=== PATIENT | male | born 1955 | race Caucasian/White ===

== ENCOUNTER 2021-11-11 18:19 | Observation (INO) ==
[2021-11-11] MEDS ORDERED: Naloxone 0.4 MG/ML INJ IVP PRN (22:58)
[2021-11-11] MEDS ORDERED: Melatonin 3 MG TABLET PO PRN (22:58)
[2021-11-11] MEDS ORDERED: Ondansetron ODT 4 MG TAB.RAPDIS SL PRN (22:58)
[2021-11-12] MEDS ORDERED: Ringers Solution, Lactated 1,000 ML IVC SCH (00:15)
[2021-11-12] MEDS ORDERED: *HR* Dextrose 50 % in Water (Syg) 50 ML SYRINGE IVP PRN (00:18)
[2021-11-12] MEDS ORDERED: D5% in Water 1,000 ML IVC PRN (00:18)
[2021-11-12] MEDS ORDERED: Dextrose Gel 15 GM/37.5 ML TUBE PO PRN ×2 (00:18)
[2021-11-12 00:46] LABS: Basophils # 0.1 K/mcL (0.0-0.2); Basophils % 0.8 %; Eosinophils # 0.4 K/mcL (0.0-0.6); Eosinophils % 3.9 %; Hematocrit 21.2 % (37.5-50.1); Hemoglobin 7.7 g/dL (12.9-16.9); Immature Granulocytes % 0.9 % (0-4); Lymphocytes # 1.6 K/mcL (0.6-4.6); Lymphocytes % 15.4 %; Mean Corpuscular HGB Conc 36.3 g/dL (31.6-35.5); Mean Corpuscular Hemoglobin 32.8 pg (28.0-33.3); Mean Corpuscular Volume 90.2 fL (83.0-100.0); Mean Platelet Volume 9.9 fL (9.4-12.4); Monocytes # 1.1 K/mcL (0.0-1.3); Monocytes % 10.2 %; Neutrophils # 7.3 K/mcL (1.6-8.9); Platelet Count 191 K/mcL (140-400); Red Blood Count 2.35 M/mcL (4.19-5.50); Red Cell Distribution Width 13.7 % (11.5-14.5); Segmented Neutrophils % 68.8 %; White Blood Count 10.6 K/mcL (4.3-11.1)
[2021-11-12 00:58] LABS: Prothrombin Time 11.3 Seconds (9.4-12.1)
[2021-11-12 01:09] LABS: Alanine Aminotransferase 23 Units/L (7-52); Albumin 2.5 g/dL (3.5-5.7); Albumin/Globulin Ratio 1.6 (1.1-2.2); Alkaline Phosphatase 43 Units/L (34-104); Aspartate Amino Transferase 36 Units/L (13-39); BUN/Creatinine Ratio 10 (6-26); Bilirubin,Total 0.5 mg/dL (0.3-1.0); Blood Urea Nitrogen 7 mg/dL (8-23); Calcium 7.6 mg/dL (8.6-10.3); Carbon Dioxide 24 mEq/L (23-29); Chloride 98 mEq/L (98-107); Globulin 1.6 g/dL (2.4-3.5); Glucose 138 mg/dL (70-105); Magnesium 1.9 mg/dL (1.6-2.6); Osmolality,Calculated 266 (280-300); Phosphorous 2.6 mg/dL (2.7-4.5); Potassium 3.7 mEq/L (3.5-5.1); Sodium 128 mEq/L (136-145); Total Protein 4.1 g/dL (6.4-8.9); eGFR For African Americans > 60 (> 60); eGFR For Non-African Americans > 60 (> 60)
[2021-11-12] MEDS: Insulin LISPRO 300 UNITS/3 ML VIAL SUBQ SCH ×3 (05:47→17:04)
[2021-11-12] MEDS: Pantoprazole 40 MG VIAL IVP SCH ×2 (06:08→17:04)
[2021-11-12 07:07] LABS: Hematocrit 21.8 % (37.5-50.1); Hemoglobin 7.6 g/dL (12.9-16.9)
[2021-11-12] MEDS: Budesonide/Formoterol 160/4.5 1 PUFF INH IH SCH ×2 (07:24→20:31)
[2021-11-12] MEDS: Gabapentin 100 MG CAPSULE PO SCH ×3 (08:41→21:28)
[2021-11-12] MEDS: Nicotine 21 MG PATCH.TD24 TD SCH (08:42)
[2021-11-12] MEDS ORDERED: Gabapentin 100 MG CAPSULE PO SCH (15:00)
[2021-11-12] MEDS ORDERED: Insulin LISPRO 300 UNITS/3 ML VIAL SUBQ SCH (21:00)
[2021-11-12] MEDS: traZODone 50 MG TABLET PO SCH (21:27)
[2021-11-13 01:16] LABS: Basophils # 0.1 K/mcL (0.0-0.2); Basophils % 0.7 %; Eosinophils # 0.7 K/mcL (0.0-0.6); Eosinophils % 5.2 %; Hematocrit 21.5 % (37.5-50.1); Hemoglobin 7.4 g/dL (12.9-16.9); Immature Granulocytes % 0.7 % (0-4); Lymphocytes # 1.6 K/mcL (0.6-4.6); Lymphocytes % 12.6 %; Mean Corpuscular HGB Conc 34.4 g/dL (31.6-35.5); Mean Corpuscular Hemoglobin 31.6 pg (28.0-33.3); Mean Corpuscular Volume 91.9 fL (83.0-100.0); Mean Platelet Volume 9.6 fL (9.4-12.4); Monocytes # 1.5 K/mcL (0.0-1.3); Monocytes % 11.8 %; Neutrophils # 8.7 K/mcL (1.6-8.9); Platelet Count 261 K/mcL (140-400); Red Blood Count 2.34 M/mcL (4.19-5.50); Red Cell Distribution Width 13.5 % (11.5-14.5); White Blood Count 12.5 K/mcL (4.3-11.1)
[2021-11-13 01:27] LABS: BUN/Creatinine Ratio 10 (6-26); Blood Urea Nitrogen 8 mg/dL (8-23); Calcium 7.8 mg/dL (8.6-10.3); Carbon Dioxide 24 mEq/L (23-29); Chloride 103 mEq/L (98-107); Glucose 56 mg/dL (70-105); Osmolality,Calculated 270 (280-300); Potassium 3.3 mEq/L (3.5-5.1); Sodium 132 mEq/L (136-145); eGFR For African Americans > 60 (> 60); eGFR For Non-African Americans > 60 (> 60)
[2021-11-13] MEDS: Pantoprazole 40 MG VIAL IVP SCH (05:26)
[2021-11-13] MEDS ORDERED: Insulin LISPRO 300 UNITS/3 ML VIAL SUBQ SCH ×3 (07:30→21:00)
[2021-11-13] MEDS ORDERED: Simethicone 40 MG/0.6 ML MLS IR ONE (07:45)
[2021-11-13] MEDS ORDERED: *HR* Propofol 200 MG/20 ML VIAL IVP ONE ×2 (08:28→08:57)
[2021-11-13] MEDS ORDERED: Lidocaine -MPF 2% 2 ML VIAL ONE (08:31)
[2021-11-13] MEDS: Nicotine 21 MG PATCH.TD24 TD SCH (09:36)
[2021-11-13] MEDS: Gabapentin 100 MG CAPSULE PO SCH ×3 (09:36→20:01)
[2021-11-13] MEDS: lisinopriL 5 MG TABLET PO SCH (09:36)
[2021-11-13] MEDS: Budesonide/Formoterol 160/4.5 1 PUFF INH IH SCH ×2 (10:26→22:39)
[2021-11-13] MEDS: Insulin LISPRO 300 UNITS/3 ML VIAL SUBQ SCH ×2 (12:16→17:03)
[2021-11-13] MEDS ORDERED: Acetaminophen 325 MG TABLET PO ONE (19:55)
[2021-11-13] MEDS: traZODone 50 MG TABLET PO SCH (20:01)
[2021-11-14] MEDS: Nicotine 21 MG PATCH.TD24 TD SCH (07:58)
[2021-11-14] MEDS: lisinopriL 5 MG TABLET PO SCH (07:58)
[2021-11-14] MEDS: Gabapentin 100 MG CAPSULE PO SCH (07:58)
[2021-11-14] MEDS: Budesonide/Formoterol 160/4.5 1 PUFF INH IH SCH (08:11)
[2021-11-14 08:12] VITALS: BP 130/72; PULSE 68; TEMP 98; O2SAT 94
[2021-11-14] MEDS: Insulin LISPRO 300 UNITS/3 ML VIAL SUBQ SCH (08:12)
[2021-11-14 09:54] LABS: Basophils # 0.1 K/mcL (0.0-0.2); Basophils % 0.6 %; Eosinophils # 0.6 K/mcL (0.0-0.6); Eosinophils % 5.1 %; Hematocrit 23.4 % (37.5-50.1); Hemoglobin 7.8 g/dL (12.9-16.9); Immature Granulocytes % 0.5 % (0-4); Lymphocytes # 1.7 K/mcL (0.6-4.6); Lymphocytes % 14.3 %; Mean Corpuscular HGB Conc 33.3 g/dL (31.6-35.5); Mean Corpuscular Hemoglobin 31.6 pg (28.0-33.3); Mean Corpuscular Volume 94.7 fL (83.0-100.0); Monocytes # 1.2 K/mcL (0.0-1.3); Monocytes % 10.6 %; Platelet Count 361 K/mcL (140-400); Red Blood Count 2.47 M/mcL (4.19-5.50); Red Cell Distribution Width 13.9 % (11.5-14.5); Segmented Neutrophils % 68.9 %; White Blood Count 11.6 K/mcL (4.3-11.1)
[2021-11-14 10:13] LABS: BUN/Creatinine Ratio 13 (6-26); Blood Urea Nitrogen 11 mg/dL (8-23); Calcium 8.1 mg/dL (8.6-10.3); Carbon Dioxide 25 mEq/L (23-29); Chloride 103 mEq/L (98-107); Glucose 174 mg/dL (70-105); Osmolality,Calculated 280 (280-300); Potassium 4.1 mEq/L (3.5-5.1); Sodium 133 mEq/L (136-145); eGFR For African Americans > 60 (> 60); eGFR For Non-African Americans > 60 (> 60)
== END 2021-11-14 11:36 | disposition home or self-care (01) ==
LOC: 3ANU → SUATTDRO 22:36
PROVIDERS: ADMIT Internal Medicine; ATTEND Family Medicine
PROC: ENDOEBX (2021-11-13 09:00)